=== PATIENT | female | born 1970 | race Caucasian/White ===

== ENCOUNTER 2018-06-17 20:06 | Emergency (ER) | payer MEDICAID ==
[~2018-06-17] VITALS: Ht 165.1 cm; Wt 106.8 kg
[2018-06-17 20:16] VITALS: Ht 165.1 cm; Wt 106.8 kg
[2018-06-17] MEDS ORDERED: ZOCOR20 MG PO (20:17)
[2018-06-17] MEDS ORDERED: LEVOTHYROXINE150 MCG (20:17)
[2018-06-17] MEDS ORDERED: NORCO 10-325 TA1 TAB (20:18)
[2018-06-17] MEDS ORDERED: LAMICTAL200 M1 (20:18)
[2018-06-17] MEDS ORDERED: SINEQUAN100 MG (20:18)
[2018-06-17] MEDS ORDERED: ZOLOFT100 MG PO (20:18)
[2018-06-17] MEDS ORDERED: MOBIC7.5 MG PO (20:19)
[2018-06-17] MEDS ORDERED: ABILIFY10 MG (20:19)
[2018-06-17] MEDS ORDERED: KLONOPIN0.5 MG (20:19)
[2018-06-17] MEDS ORDERED: OMEPRAZOLE40 MG (20:19)
[2018-06-17] MEDS ORDERED: CLEOCIN HCL300 MG PO (20:54)
[2018-06-17] MEDS ORDERED: VOLTAREN75 MG PO (20:54)
[2018-06-17 21:50] VITALS: BP 134/69
== END 2018-06-17 21:51 | disposition home or self-care (01) ==
LOC: D.ER 20:06
DX: K04.7 Periapical abscess without sinus (principal); K08.89 Other specified disorders of teeth and supporting structures

== ENCOUNTER → 2018-06-19 13:39 | Outpatient (CLI) | payer MEDICAID ==
[2018-06-17 20:16] VITALS: BMI 39.1
[~2018-06-19 13:39] MED LIST: ABILIFY10 MG; CLEOCIN HCL300 MG PO; KLONOPIN0.5 MG; LAMICTAL200 M1; LEVOTHYROXINE150 MCG; MOBIC7.5 MG PO; NORCO 10-325 TA1 TAB; OMEPRAZOLE40 MG; SINEQUAN100 MG; VOLTAREN75 MG PO; ZOCOR20 MG PO; ZOLOFT100 MG PO
== END | disposition home or self-care (01) ==
LOC: D.LAB 13:00 → D.RT 14:00
DX: J44.9 Chronic obstructive pulmonary disease, unspecified (principal)

== ENCOUNTER → 2018-10-26 11:29 | Outpatient (CLI) | payer MEDICAID | END | disposition home or self-care (01) | LOC: D.MRI 11:29 | DX: S46.002A Unspecified injury of muscle(s) and tendon(s) of the rotator cuff of left shoulder, initial encounter (principal); X58.XXXA Exposure to other specified factors, initial encounter ==

== ENCOUNTER 2018-12-08 06:14 | Day surgery (SDC) | payer MEDICAID ==
[2018-12-07 14:47] LABS: HEMATOCRIT 38.1 % (36.0-48.0); MCH 29.7 pg (26.0-34.0); MCHC 34.1 g/dL (31.0-37.0); MEAN PLATELET VOLUME 9.6 fL (7.4-10.4); RBC 4.38 10x6/uL (4.00-5.40); RDW 13.6 % (11.5-14.5); WBC 8.9 10x3/uL (4.8-10.8)
[~2018-12-08] VITALS: Ht 167.6 cm; Wt 108.9 kg
[~2018-12-08 06:14] MED LIST changes: +HYDROCODON-ACE1 EA10 PO; +SEROQUEL50 MG PO
[2018-12-08 06:56] VITALS: BP 133/74; Ht 167.6 cm; Wt 108.9 kg
[2018-12-08] MEDS ORDERED: VISTARIL50 MG PO (10:33)
[2018-12-08] MEDS ORDERED: PERCOCET 10-321 EAC1 PO (10:33)
--- NOTE | 2018-12-08 11:07 | NUR ---
LEFT ARM IN SLING ON ADMIT TO RR
--- NOTE | 2018-12-08 12:34 | OP ---
PATIENT NAME: EMMANUEL CLINE MEDICAL RECORD: [id number] :70 LOCATION:[facility] ADMISSION DATE: SURGEON: TORSTEN COLÓN DO DATE OF OPERATION: 12/08/2018 PROCEDURE PERFORMED: Left shoulder arthroscopy with biceps tenodesis, distal clavicle excision, subacromial decompression and labral debridement. PREOPERATIVE DIAGNOSES: POSTOPERATIVE DIAGNOSES: Left shoulder pain with a superior labral anterior-posterior tear, acromioclavicular joint arthritis and subacromial impingement. INDICATIONS: Ms. Cline is a 48-year-old female who has been through several rounds of injections and physical therapy with an MRI with a partial rotator cuff tear and SLAP tear, acromioclavicular joint arthritis in an impingement type picture on MRI. She was informed of the risk of the procedure. I told her that I would take a closer look at the rotator cuff and if it was more than 50% torn I would take it down and fix it; if it were not, I would leave it. She was okay with that as were the risks of infection, bleeding, damage to nerves and vessels, need for further surgery and continued shoulder pain and she signed the consent. SURGEON: Torsten Colón DO DESCRIPTION OF PROCEDURE: The patient received a block by anesthesia in the preoperative area, was taken to the operative suite, laid in the right lateral decubitus position with the left shoulder up. The left shoulder was prepped and draped in sterile fashion. She was sedated and an LMA was placed. Prior to this, timeout was performed. Everyone was in agreeance with the correct side, site, patient and procedure. Once that was done, she did receive the 900 mg of clindamycin. The posterior portal was established with an 18-guage spinal needle and 11-blade scalpel after being insufflated into the joint with 60 mL of normal saline and the trocar was entered into the joint. Once it was entered into the joint, anterior portal was established with an 18-guage spinal needle and 11-blade scalpel and a burner was brought in. A SLAP tear was seen and the biceps was tenotomized at that point. Labrum was debrided. The supraspinatus, infraspinatus, and subscapularis tendons were all checked. There were no tears seen in any of them on the articular side. The inferior gutter of the shoulder joint looked good as well as the cartilage of the shoulder. I then switched to the subacromial space. A lateral portal was established with an 18-guage spinal needle and 11-blade scalpel. A subacromial decompression was then done, quite a bit of bursa was there. This was removed and a distal clavicle excision was done as well as the acromion and clavicle were almost touching, opened up to approximately 7-mm. Then, the rotator cuff was inspected on the bursal side and appeared to be in good repair. No tear was seen in that. Attention was then drawn to the anterior humerus and a small incision was made. Careful dissection was made down the long head of the biceps tendon, it was pulled out through the incision, whipstitched and then a single button was placed unicortically through the humerus and cinched down the biceps tendon. Once it was cinched down, it was tied and then free needle was used to go through the biceps tendon. Again, this was tied down and cut, and excess tendon was cut as well. This was irrigated and then closed with 2-0 Vicryl in an inverted interrupted fashion, 4-0 Monocryl ran on the skin and 4-0 Monocryl was used to close the portal sites OPERATIVE REPORT [id number] EMMANUEL CLINE as well and Dermabond glue was placed on all of them. Telfa and Tegaderm were then placed on that and she was awakened and taken to recovery in stable condition, placed in a sling. BLOOD LOSS: Minimal. COMPLICATIONS: None. TRANSINT:[id number] Voice Confirmation ID: [id number] DOCUMENT ID: [id number] TORSTEN COLÓN DO at 1234 CC: [id number] DICTATION DATE: 12/08/18 1030 NOUGAT CANDY MAKER HELPER: 12/08/18 1140 [facility] [address] [id number]
== END 2018-12-08 12:35 | disposition home or self-care (01) ==
LOC: D.OPS 06:14 → D.PAN 07:30 → D.OPS 08:15 → D.PAN 09:30 → D.OPS 09:30
PROVIDERS: Anesthesiology; ATTEND Orthopaedic Surgery
DX: S43.432A Superior glenoid labrum lesion of left shoulder, initial encounter (principal); X58.XXXA Exposure to other specified factors, initial encounter; M13.812 Other specified arthritis, left shoulder; M75.42 Impingement syndrome of left shoulder; Z01.812 Encounter for preprocedural laboratory examination

== ENCOUNTER 2019-10-10 07:04 | Day surgery (SDC) | payer MEDICAID ==
[~2019-10-10] VITALS: Ht 167.6 cm; Wt 109.1 kg
[~2019-10-10 07:04] MED LIST changes: +PERCOCET 10-321 EAC1 PO; +VISTARIL50 MG PO
[2019-10-10 07:22] LABS: BASOPHILS 0.4 % (0-2); EOSINOPHILS 1.7 % (0-7); HEMATOCRIT 38.4 % (36.0-48.0); HEMOGLOBIN 12.4 g/dL (12-16); IMMATURE GRANULOCYTES 0.3 % (0-5); LYMPHOCYTES 23.9 % (15-50); MCH 28.1 pg (26.0-34.0); MCHC 32.3 g/dL (31.0-37.0); MCV 87.1 fL (80.0-100.0); MEAN PLATELET VOLUME 9.4 fL (7.4-10.4); MONOCYTES 5.2 % (2-11); NEUTROPHILS 68.5 % (40-80); PLATELET COUNT 267 10x3/uL (130-400); RBC 4.41 10x6/uL (4.00-5.40); RDW 15.5 % (11.5-14.5); WBC 7.9 10x3/uL (4.8-10.8)
[2019-10-10 07:34] LABS: ANION GAP 11.2 mmol/L (8-16); CALCIUM 8.6 mg/dL (8.5-10.1); CARBON DIOXIDE 29.3 mmol/L (21.0-32.0); CREATININE - SERUM 1.3 mg/dL (0.6-1.3); POTASSIUM - SERUM 3.5 mmol/L (3.5-5.1)
[2019-10-10] MEDS ORDERED: HYDROCODON-ACE1 EA10 PO (08:22)
[2019-10-10 08:41] VITALS: Ht 167.6 cm; Wt 109.1 kg
--- NOTE | 2019-10-10 11:09 | NUR ---
1100-RECD FROM GI LAB. DR TOPETE IN TO REPORT FINDINGS.
--- NOTE | 2019-10-10 11:57 | NUR ---
1145-D/C HOME VIA TO MOTHER.
--- NOTE | 2019-10-12 10:07 | OP ---
PATIENT NAME: EMMANUEL CLINE MEDICAL RECORD: [id number] :70 LOCATION:[facility] ADMISSION DATE: SURGEON: SAMSON TOPETE DO DATE OF OPERATION: 10/10/2019 PROCEDURE: Colonoscopy with polypectomy and biopsies. INDICATIONS FOR PROCEDURE: Hematochezia, irregular bowel habits, generalized abdominal pain. SCOPE: Olympus video pediatric colonoscope. MEDICATIONS: Propofol 500 mg IV per anesthesia. WITHDRAWAL TIME: 12 minutes. ESTIMATED BLOOD LOSS: Minimal. COMPLICATIONS: None. FINDINGS: Informed consent was given. The patient was made comfortable with the above medication. After reaching an adequate level of sedation by slow IV push, the patient was placed on her left side. A digital rectal examination was performed and it was normal. The endoscope was then advanced under direct visualization through the rectum to the cecum and the terminal ileum. The endoscope was slowly withdrawn and mucosa was carefully examined. The prep quality was good. There was a single benign-appearing sessile polyp located in the sigmoid colon, which measured approximately 3 mm in diameter. It was removed using hot forceps. There was evidence of mild diverticulosis in the sigmoid colon. Retroflexion was performed in the rectum with visualization of grade I internal hemorrhoids without bleeding. Random biopsies were taken with cold forceps throughout the colon to rule out the presence of microscopic colitis. The endoscope was withdrawn from the patient. The patient tolerated the procedure well and there were no immediate complications. IMPRESSION: 1. A single benign-appearing sigmoid polyp removed using hot forceps. 2. Mild diverticulosis of the sigmoid colon. 3. Grade I internal hemorrhoids without bleeding. PLAN AND RECOMMENDATIONS: 1. Discharge home when recovery parameters are met. 2. Follow up biopsy specimen results. 3. High fiber diet. 4. Supplement diet with 1 tablespoon of Metamucil daily. 5. Dicyclomine 20 mg t.i.d. p.r.n. loose stools or abdominal pain and cramping. 6. Recall colonoscopy in 5 years. TRANSINT:[id number] Voice Confirmation ID: [id number] DOCUMENT ID: [id number] OPERATIVE REPORT [id number] EMMANUEL CLINE SAMSON TOPETE DO at 1007 CC: [id number] DICTATION DATE: 10/10/19 1044 BASEBALL COACH: 10/10/19 1326 DEP SDC 10/10/19 [facility] [address] [id number]
== END 2019-10-10 11:45 | disposition home or self-care (01) ==
LOC: D.OPS 07:04
PROVIDERS: Anesthesiology; ATTEND Internal Medicine Gastroenterology
DX: K92.1 Melena (principal); R19.4 Change in bowel habit; R10.9 Unspecified abdominal pain; K63.5 Polyp of colon; J44.9 Chronic obstructive pulmonary disease, unspecified; E11.9 Type 2 diabetes mellitus without complications; E07.9 Disorder of thyroid, unspecified; Z79.84 Long term (current) use of oral hypoglycemic drugs; Z72.0 Tobacco use

== ENCOUNTER → 2020-02-20 09:38 | Outpatient (CLI) | payer MEDICAID ==
[2019-10-10 08:41] VITALS: BMI 38.8
== END | disposition home or self-care (01) ==
LOC: D.US 09:38
PROVIDERS: ATTEND Internal Medicine Gastroenterology
DX: R11.2 Nausea with vomiting, unspecified (principal); R10.84 Generalized abdominal pain

== ENCOUNTER → 2020-07-30 09:08 | Outpatient (CLI) | payer MEDICAID ==
[2019-10-10 08:41] VITALS: BMI 38.8
[2020-07-30 09:55] LABS: ALBUMIN 3.7 g/dL (3.4-5.0); BILIRUBIN - DIRECT 0.1 mg/dL (0.00-0.30); BILIRUBIN - INDIRECT 0.29 mg/dL (0.00-1.00); BILIRUBIN - TOTAL 0.39 mg/dL (0.2-1.3); PROTEIN - SERUM 7.5 g/dL (6.4-8.2)
== END | disposition home or self-care (01) ==
LOC: D.LAB 08:00 → D.US 09:30
PROVIDERS: ATTEND Internal Medicine Gastroenterology
DX: K76.0 Fatty (change of) liver, not elsewhere classified (principal)

== ENCOUNTER → 2020-08-27 18:29 | Outpatient (CLI) | payer BC ==
[2019-10-10 08:41] VITALS: BMI 38.8
== END | disposition home or self-care (01) ==
LOC: D.MAMMO 13:30
PROVIDERS: ATTEND Family Medicine
DX: Z12.31 Encounter for screening mammogram for malignant neoplasm of breast (principal)

== ENCOUNTER → 2020-09-17 09:20 | Outpatient (CLI) | payer BC ==
[2019-10-10 08:41] VITALS: BMI 38.8
== END | disposition home or self-care (01) ==
LOC: D.US 09-15 10:30
PROVIDERS: ATTEND Family Medicine
DX: N18.30 Chronic kidney disease, stage 3 unspecified (principal)

== ENCOUNTER → 2020-09-23 13:38 | Outpatient (CLI) | payer BC ==
[2019-10-10 08:41] VITALS: BMI 38.8
== END | disposition home or self-care (01) ==
LOC: D.CT 13:38
PROVIDERS: ATTEND Family Medicine
DX: N28.89 Other specified disorders of kidney and ureter (principal)

== ENCOUNTER → 2020-10-09 13:54 | Outpatient (CLI) | payer BC ==
[2019-10-10 08:41] VITALS: BMI 38.8
[2020-10-10 10:12] LABS: HEPATITIS C ANTIBODY <0.1 S/CO RAT (0.0-0.9)
== END | disposition home or self-care (01) ==
LOC: D.LAB 13:54
PROVIDERS: ATTEND Internal Medicine Gastroenterology
DX: K76.0 Fatty (change of) liver, not elsewhere classified (principal); R74.8 Abnormal levels of other serum enzymes